=== PATIENT | female | born 2005 | race Caucasian/White ===

== ENCOUNTER 2024-09-28 11:30 | Emergency (ER) | payer MEDICAID ==
[~2024-09-28] VITALS: Ht 170.2 cm; Wt 76.5 kg
[2024-09-28 11:32] VITALS: BP 108/67; TEMP 97.9
[2024-09-28] MEDS: diphenhydrAMINE 50 mg/ml inj IM ONE (11:55)
--- NOTE | 2024-09-28 12:18 | Physician Documentation ---
History of Present Illness ~ Chief Complaint: Allergic Reaction Stated Complaint: ALLERGIC REACTION Time Seen by MD: 12:30 Primary Medical Doctor: Avery HALL 18-year-old female with a history of allergies presents to the ED with a complaint of touching lavender and developing allergic-like symptoms.She states she has some chest tightness no wheezing, but feels anxious. Day of Onset: Sep 28, 2024 Medication Reconciliation Allergies: Coded Allergies: No Known Allergies (Unverified , 11/30/11) Physical Exam Vital Signs: Temperature: 97.9, Source: Oral, Heart Rate: 74, Respiratory Rate: 16, BP: 108/67, Pulse Oximetry: 99, Weight: 76.500 Oxygen Flow Rate: 0 Physical Exam General: Alert, no apparent distress. Respiratory: Lungs clear, no respiratory distress. Chest: No accessory muscle use. Cardiovascular: Regular rate and rhythm, no murmurs. Gastrointestinal: Soft, nontender, nondistended. Bowels sounds present. Extremities: Normal range of motion, no deformity. Neurologic: Oriented x4. Psychiatric: Normal mood and affect. Skin: Normal color, warm and dry. No edema, no ecchymosis. Progress Results/Orders Results/Orders Completed Orders - ABRAHAM HANNA NP Diphenhydramine Inj (Benadryl Inj.) (09/28/24 11:35) Medications Received in ER Medications (Trade) Dose Ordered Sig/Candie Route PRN Reason Start Time Stop Time Status Last Admin Dose Admin (Benadryl inj.) 25 mg ONCE ONCE IM 09/28/24 11:35 09/28/24 11:36 DC 09/28/24 11:55 25 MG Vital Signs 09/28/24 09/28/24 11:32 12:52 Temp 97.9 Pulse 74 64 Resp 16 18 B/P (MAP) 108/67 Pulse Ox 99 98 O2 Flow Rate 0 Medical Decision Making Findings Patient received 25 mg of Benadryl IM while in the lobby. By the time I saw her in in ER room she reported overall improved symptoms. Stated that she was ready to be discharged. Currently suspecting mild to moderate reaction to Lavender. Differential Dx:Considerations: Include: Anaphylaxis, Angioedema, Bronchospasm, Contact dermatitis, Drug reaction, Hypotension, Latex allergy, Renal failure, Respiratory failure, Shock, Urticaria, Other Departure Disposition: 01 HOME / SELF CARE / HOMELESS Impression: Primary Impression: Acute allergic reaction Condition: Stable Discharge Instructions: Anaphylactic Reaction, Adult, [id number] Additional Instructions: Were hapy to help you today, obviously a good idea to avoid lab and her going forward. Referrals: NO PRIMARY CARE PROVIDER (PCP) Education Educated: Patient Educated regarding: diagnosis Signature Scribe Signature: e Attestation: Scribed for Abraham Hanna [employer] by Abraham Quan NP . 09/28/24 12:46 ABRAHAM HANNA NP Sep 28, 2024 12:18
[2024-09-28 12:52] VITALS: PULSE 64; RESP 18; O2SAT 98
== END 2024-09-28 12:54 | disposition home or self-care (01) ==
LOC: ER 11:31
DX: T78.49XA Other allergy, initial encounter (principal); R07.89 Other chest pain; F41.9 Anxiety disorder, unspecified; X58.XXXA Exposure to other specified factors, initial encounter
CPT/HCPCS: 96372; 99283; J1200